=== PATIENT | female | born 1975 | race Caucasian/White ===

== ENCOUNTER 2018-12-08 08:51 | Outpatient (CLI) | payer OTHER, SELFPAY ==
--- NOTE | 2018-12-08 09:13 | DI.MAMMO_ITS ---
SYMPTOM/DIAGNOSIS: SCREENING, Z12.31 MAMMOGRAMS: Mammograms were interpreted according to the usual protocol including computer analysis with CAD system, tomosynthesis and C view imaging. The breasts are heterogeneously dense. No dominant mass or clumped microcalcification is identified in either breast. The current examination is compared with previous examinations including 11/2017 and there is increased prominence of an area of asymmetric density projected in the central portion of the right breast on CC view. Additional mammographic views of this area are requested to include CC spot compression view of the right breast. CONCLUSION: Additional mammographic views right breast requested as described above. Breast ultrasound may be indicated as well depending on the results of the additional mammographic views. Category 0. Breast density, Category C. MQSA ASSESSMENT OF FINDINGS: Incomplete: Needs additional imaging evaluation. Category 0. Patient will receive a letter notifying them of these results. Bi-RADS category C. The breasts are heterogeneously dense, which may obscure small masses.
== END 2018-12-08 09:11 ==
PROVIDERS: PCP Internal Medicine; Visit Provider Internal Medicine
DX: Z12.31 Encounter for screening mammogram for malignant neoplasm of breast (principal); R92.8 Other abnormal and inconclusive findings on diagnostic imaging of breast
CPT/HCPCS: 77063; 77067

== ENCOUNTER 2018-12-15 01:29 | Outpatient (CLI) | payer OTHER, SELFPAY ==
--- NOTE | 2018-12-15 10:45 | DI.COMBO_ITS ---
SYMPTOMS/DIAGNOSIS: F/U ABNORMAL MAMMO, INCREASED PROMINENCE OF AREA OF ASYMMETRIC DENSITY, RIGHT ADDITIONAL IMAGES OF THE RIGHT BREAST AND RIGHT BREAST MAMMOGRAM: Additional images are interpreted according to the usual protocol including tomosynthesis and 2D imaging. Craniocaudad compression spot film was obtained today and reveals nonspecific fibroglandular densities. There is no discernible mass. At ultrasound, no cyst or mass is identified. SUMMARY: No evidence of malignancy, category 1. Yearly screening mammography is recommended. Breast density category C. MQSA ASSESSMENT OF FINDINGS: Negative. Category 1. Patient will receive a letter notifying them of these results. Bi-RADS category C. The breasts are heterogeneously dense, which may obscure small masses.
== END 2018-12-15 01:49 ==
PROVIDERS: PCP Internal Medicine; Visit Provider Internal Medicine
DX: Z12.31 Encounter for screening mammogram for malignant neoplasm of breast (principal); R92.8 Other abnormal and inconclusive findings on diagnostic imaging of breast; N60.81 Other benign mammary dysplasias of right breast
CPT/HCPCS: 76642; 77063; 77067

== ENCOUNTER 2020-04-08 01:02 | Outpatient (CLI) | payer OTHER, SELFPAY ==
--- NOTE | 2020-04-08 | DI.MAMMO_ITS ---
EXAM: MAMMO SCREENING CLINICAL HISTORY: SCREENING,Z12.31 TECHNIQUE: Mammograms were interpreted according to the usual protocol including computer analysis w [employer] CAD system, tomosynthesis and C-view imaging. COMPARISON: 2014 through 2018 FINDINGS: The breasts are composed of heterogeneously dense fibroglandular densities, Breast Density category C . No suspicious masses or suspicious microcalcifications are seen. No skin thickening or abnormal axillary lymph nodes are seen. There has been no significant change from prior exams. IMPRESSION: BI-RADS Category 1: Negative mammogram Yearly screening mammography is recommended. Breast Density Category C, heterogeneously dense tissue which decreases the sensitivity of the mammog ana. The mammogram demonstrates the patient's breast tissue is dense. Dense breast tissue is very common a nd is not abnormal but dense breast tissue can make it harder to find cancer on a mammogram. Also, de nse breast tissue may increase breast cancer risk. This information about the result of the mammogram report was provided to the patient to raise their awareness. Use this report when you speak with the patient about their risks for breast cancer, which includes their family history. At that time, you may recommend additional screening tests (Ultrasound or MRI) as they might be useful based on their r isk. A negative radiographic report should not delay biopsy if a dominant or clinically suspicious mass is present. Up to ten percent of cancers are not identified on mammography. A negative report may reinforce clinical impression. Adenosis and dense breasts may obscure an underlying neoplasm. False positive reports average 6 to 10%.
== END 2020-04-08 01:22 ==
PROVIDERS: PCP Internal Medicine; Visit Provider Internal Medicine
DX: Z12.31 Encounter for screening mammogram for malignant neoplasm of breast (principal); R92.2 Inconclusive mammogram
CPT/HCPCS: 77063; 77067

== ENCOUNTER 2021-04-09 01:03 | Outpatient (CLI) | payer OTHER, SELFPAY ==
--- NOTE | 2021-04-09 | DI.MAMMO_ITS ---
Exam(s) MAMMO SCREENING EXAM: MAMMO SCREENING CLINICAL HISTORY: SCREENING,Z12.31. TECHNIQUE: Bilateral full field digital CC and MLO mammographic images were obtained with 3D tomosyn thesis and utilizing computer aided detection (CAD). COMPARISON: Prior mammograms dating back to 2014, the most recent being March 2020. Ultrasound November 2018 was reviewed FINDINGS: Fibroglandular tissue pattern is moderately dense, this decreases sensitivity mammogram for finding h idden underlying lesions. Towards the lateral aspect of the left breast there is a 6 x 5 millimeter asymmetric density located 5 cm in from the nipple, best seen on the CC view. Pot compression view ultrasound recommended. Pos teriorly in the left breast there is an asymmetric density also noted measuring approximately 8 x 7 m illimeters and located approximately 8 cm in from the nipple on the MLO view. Also require spot view . In the opposite-right breast there is an asymmetric nodular density measuring approximately 7 x 6 mil limeters located approximately 6 cm in from the nipple. This also require spot compression view. There is no significant architectural distortion nor skin thickening-retraction. Malignant-appearing microcalcification groups. IMPRESSION: Moderately dense fibroglandular tissue. Bilateral asymmetric densities-possible nodules. Bilateral breast ultrasound recommended. Also spot views. BI-RADS Category 0 - Assessment Incomplete: Need additional imaging evaluation Breast Density - Category C - Heterogeneously dense Breast density Category C or D implies that the patient has dense breast tissue. Dense breast tissue can make it harder to find cancer on a mammogram. Dense breast tissue is also associated with an incr eased risk of breast cancer. This information about the result of the mammogram report was provided to the patient to raise their awareness. Use this report when you speak with the patient about their risks for breast cancer, which includes their family history. At that time, you may recommend additional screening tests (Ultrasoun d or MRI) as these tests may add significant information. A negative radiographic report should not delay biopsy if a dominant or clinically suspicious mass is present. Up to ten percent of cancers are not identified on mammography. A negative report may reinforce clinical impression. Adenosis and dense breasts may obscure an underlying neoplasm. False positive reports average 6 to 10%. Patient will receive a letter notifying them of these results.
== END 2021-04-09 01:23 ==
PROVIDERS: PCP Internal Medicine; Visit Provider Internal Medicine
DX: Z12.31 Encounter for screening mammogram for malignant neoplasm of breast (principal); R92.8 Other abnormal and inconclusive findings on diagnostic imaging of breast
CPT/HCPCS: 77063; 77067

== ENCOUNTER 2021-04-30 02:16 | Outpatient (CLI) | payer OTHER, SELFPAY ==
--- NOTE | 2021-04-30 | DI.US_ITS ---
Exam(s) US BREAST LT COMPLETE US BREAST RT COMPLETE MG MAMMO SCREEN CALL BACK BI EXAM: MG MAMMO SCREEN CALL BACK BI AND BILATERAL COMPLETE BREAST ULTRASOUND CLINICAL HISTORY: F/U MAMMO, DENSE BREAST TISSUE, 2 LT ASYMMETRIC DENSITY,RT NODULAR DENSITY. TECHNIQUE: Bilateral mammographic images were obtained with 3D tomosynthesis and utilizing computer aided detection (CAD). . Complete bilateral breast Ultrasound was also performed, including all 4 quadrants, the retroareolar regions, and both axillary regions. COMPARISON: Prior mammograms were reviewed. This additional imaging was performed due to findings described on the recent screening mammogram of 04/09/2021. FINDINGS: Additional mammographic views performed todayrenders the recently described right nodular density les s concerning. Additional mammographic the laterally located nodular density in left breast renders this area less c oncerning. Spot compression view of the area described posteriorly in the left breast is somewhat equivocal. Proceeded with bilateral complete breast ultrasound BILATERAL COMPLETE BREAST ULTRASOUND: Ultrasound performed today reveals no evidence of solid or significant cystic lesions in all 4 quadra nts of both breasts nor in the retroareolar regions of both breasts.. Benign-appearing lymph nodes w ere noted in both axillary regions. No significant lymphadenopathy evident. IMPRESSION: 1. Benign right breast findings.. No radiographic evidence of malignancy in right breast. 2. Benign left breast findings. I recommend repeat left breast MAMMOGRAM AND ULTRASOUND in 6 months to ensure stability of the finding posteriorly in left breast. The patient was informed of these findings and recommendations prior to leaving the department today. BI-RADS Category 3 - 6 month - Probably Benign Finding: Recommend follow-up mammography in 6 months Breast Density - Category C - Heterogeneously dense Breast density Category C or D implies that the patient has dense breast tissue. Dense breast tissue can make it harder to find cancer on a mammogram. Dense breast tissue is also associated with an incr eased risk of breast cancer. This information about the result of the mammogram report was provided to the patient to raise their awareness. Use this report when you speak with the patient about their risks for breast cancer, which includes their family history. At that time, you may recommend additional screening tests (Ultrasoun d or MRI) as these tests may add significant information. A negative radiographic report should not delay biopsy if a dominant or clinically suspicious mass is present. Up to ten percent of cancers are not identified on mammography. A negative report may reinforce clinical impression. Adenosis and dense breasts may obscure an underlying neoplasm. False positive reports average 6 to 10%. Patient will receive a letter notifying them of these results.
== END 2021-04-30 02:36 ==
PROVIDERS: PCP Internal Medicine; Visit Provider Internal Medicine
DX: Z12.31 Encounter for screening mammogram for malignant neoplasm of breast (principal); R92.8 Other abnormal and inconclusive findings on diagnostic imaging of breast; N60.81 Other benign mammary dysplasias of right breast; N60.82 Other benign mammary dysplasias of left breast
CPT/HCPCS: 76642; 77063; 77067

== ENCOUNTER 2021-10-29 01:09 | Outpatient (CLI) | payer OTHER, SELFPAY ==
--- NOTE | 2021-10-29 | DI.US_ITS ---
Exam(s) MG MAMMO DIAGNOSTIC UNI US BREAST LT LIMITED EXAM: MG MAMMO DIAGNOSTIC UNI CLINICAL HISTORY: MASS OF LT BREAST, R92.8, 6-MO F/U TECHNIQUE: Mammograms were interpreted according to the usual protocol including computer analysis w ith CAD system, tomosynthesis and C-view imaging. COMPARISON: FINDINGS: Left breast mammogram with additional mammographic views of the left breast and left breast ultrasoun d are interpreted in conjunction. These examinations were obtained to follow an area of asymmetric d ensity/nodularity seen in the posterior central portion of left breast on prior mammogram April 24. On today's examination routine views and spot compression views do not show any significant change in appearance of the asymmetric density in comparison with the recent images or images from prior studi es including November 2017. Breast ultrasound shows a 3 millimeter cyst in the retroareolar portion of the breast but shows no ev idence of a mass or cyst in the region of the suspected nodularity. IMPRESSION: No specific evidence of malignancy at this time. I would suggest that routine screening examinations resume with a bilateral mammogram in 6 months. BI-RADS Category 3 - 6 month - Probably Benign Finding: Recommend follow-up mammography in 6 months Breast Density - Category C - Heterogeneously dense
== END 2021-10-29 01:29 ==
PROVIDERS: PCP Internal Medicine; Visit Provider Internal Medicine
DX: R92.8 Other abnormal and inconclusive findings on diagnostic imaging of breast (principal); N60.02 Solitary cyst of left breast
CPT/HCPCS: 76642; 77061; 77065; G0279

== ENCOUNTER → 2023-12-02 03:51 | Outpatient (CLI) | payer OTHER, SELFPAY ==
--- NOTE | 2023-12-02 | DI.MAMMO_ITS ---
Exam(s) MAMMO SCREENING EXAM: MAMMO SCREENING CLINICAL HISTORY: Z12.39 Encounter for other screening for malignant neoplasm of breast TECHNIQUE: Bilateral full field digital CC and MLO mammographic images were obtained with 3D tomosyn thesis and utilizing computer aided detection (CAD). COMPARISON: Available for comparison. FINDINGS: Masses/Architectural Distortion: There are new areas of nodularity/asymmetric breast tissue in calcif ication at the 12-1 o'clock position of the right breast. Microcalcifications: No suspicious pleomorphic-type are seen. Skin Thickening/Nipple Retraction: None. IMPRESSION: 1. New asymmetric breast tissue in calcification at the 12-1 o'clock position of the right breast. 2. This area should be further evaluated with spot compression views. Right breast ultrasound should also be obtained at that time. BI-RADS Category 0 - Assessment Incomplete: Need additional imaging evaluation Breast Density - Category C - Heterogeneously dense Breast density category C or D implies that the patient has dense breast tissue. Dense breast tissue is very common and is not abnormal but dense breast tissue can make it harder to find cancer on a ma mmogram. Also, dense breast tissue may increase their breast cancer risk. This information about the result of the mammogram report was provided to the patient to raise their awareness. Use this report when you speak with the patient about their risks for breast cancer, which includes their family hist ory. At that time, you may recommend for more screening tests (Ultrasound or MRI) as they might be us eful based on their risk. A negative radiographic report should not delay biopsy if a dominant or clinically suspicious mass is present. Up to ten percent of cancers are not identified on mammography. A negative report may reinforce clinical impression. Adenosis and dense breasts may obscure an underlying neoplasm. False positive reports average 6 to 10%. Patient will receive a letter notifying them of these results.
== END ==
PROVIDERS: PCP Internal Medicine; Visit Provider Internal Medicine
DX: Z12.31 Encounter for screening mammogram for malignant neoplasm of breast (principal); R92.8 Other abnormal and inconclusive findings on diagnostic imaging of breast
CPT/HCPCS: 77063; 77067

== ENCOUNTER → 2023-12-08 02:23 | Outpatient (CLI) | payer OTHER, SELFPAY ==
--- NOTE | 2023-12-08 | DI.US_ITS ---
Exam(s) MG MAMMO SCREEN CALL BACK UNI US BREAST RT LIMITED EXAM: US BREAST RT LIMITED CLINICAL HISTORY: Asymmetric breast tissue Rt Breast , R92.8 ABN Mammo. TECHNIQUE: Craniocaudal and mediolateral oblique spot compression digital Mammography views of the r ightbreast with Tomosynthesis and right breast ultrasound. COMPARISON: MG MG MAMMO RAMOS SCREENING BILAT-M2 from 11/30/2016 MG MG MAMMO RAMOS SCREENING BILAT-M2 from 12/01/2017 MG MG mammo screening from 12/08/2018 MG MG mammo screen call back UNI from 12/15/2018 MG MG MAMMO SCREENING from 04/08/2020 MG MG MAMMO SCREENING from 04/09/2021 MG MG MAMMO SCREEN CALL BACK BI from 04/30/2021 MG MG MAMMO DIAGNOSTIC UNI from 10/29/2021 MG MG MAMMO SCREENING from 12/02/2023 MG MG MAMMO SCREEN CALL BACK UNI from 12/08/2023 US US BREAST RT LIMITED from 12/08/2023 FINDINGS: Mammography/Tomosynthesis: Masses/Architectural Distortion: Persistent areas of circumscribed nodularity in the superior posteri or right breast. Microcalcifictions: No suspicious pleomorphic-type are seen. Skin Thickening/Nipple Retraction: None. Right breast US: Echotexture: Normal appearance of the glandular tissue. Shadowing: No suspicious foci. Cyst: Clustered cysts are noted in the superior breast in the 11 and 12 o'clock positions. There is a 3 millimeter cyst in the 11 o'clock position 1 cm from the nipple. There is 4 millimeter cyst in the 12 o'clock position 4 cm from the nipple. There is an adjacent elongated cyst in the 12 o'clock posi tion 4 cm from the nipple measuring 8 by 3 by 9 millimeters. Solid lesions: None seen. Ductal dilation: None. IMPRESSION: 1. No evidence of malignancy is noted. 2. Unless there is more urgent need, follow-up screening mammography is recommended, as per [employer] [employer] guidelines. 3. The findings were discussed with the patient on the date of the examination. BI-RADS Category 2 - Benign Findings Breast Density - Category C - Heterogeneously dense A mammogram that demonstrates density of C or D indicates the patient's breast tissue is dense. Dense breast tissue is very common and is not abnormal, but dense breast tissue can make it harder to find cancer on a mammogram. Also, dense breast tissue may increase their breast cancer risk. This informa tion about the result of the mammogram report was provided to the patient to raise their awareness. U se this report when you speak with the patient about their risks for breast cancer, which includes th eir family history. At that time, you may recommend for more screening tests (Ultrasound or MRI) as t hey might be useful based on their risk. A negative radiographic report should not delay biopsy if a dominant or clinically suspicious mass is present. Up to ten percent of cancers are not identified on mammography. A negative report may reinforce clinical impression. Adenosis and dense breasts may obscure an underlying neoplasm. False positive reports average 6 to 10%. Patient will receive a letter notifying them of these results.
== END ==
PROVIDERS: PCP Internal Medicine; Visit Provider Internal Medicine
DX: R92.8 Other abnormal and inconclusive findings on diagnostic imaging of breast (principal); R92.30 Dense breasts, unspecified; R92.331 Mammographic heterogeneous density, right breast
CPT/HCPCS: 76642; 77063; 77067